=== PATIENT | female | born 1960 | race Caucasian/White ===

== ENCOUNTER → 2016-07-18 | Outpatient (CLI) | payer OTHER ==
--- NOTE | 2016-07-18 09:26 | MRI ---
Study: MRI of the Lumbar Spine. Indication: LUMBAR PAIN Technique: Multiplanar, multi sequence MRI of the lumbar spine was obtained without intravenous contrast. Comparison: Radiographs March 07, 2016. Findings: The designated L5-S1 disc space level is visualized on axial T2 image 8. Vertebral body height maintained. No marrow infiltrating lesion. Conus medullaris normal in caliber and signal terminating at the L1 level. Level by level analysis as follows: T11-T12: Moderate anterior disc space height loss with prominent Modic type 2 endplate changes. 3 mm disc bulge, otherwise unremarkable. T12-L1: Mild disc space height loss and disc desiccation with a 2 mm disc protrusion, otherwise unremarkable. L1-L2: Trace retrolisthesis with minimal disc space height loss and disc desiccation with a 1 mm disc bulge, otherwise unremarkable. L2-L3: Trace retrolisthesis with mild disc space height loss and disc desiccation. 3 mm disc bulge, otherwise unremarkable. L3-L4: Mild disc space height loss and desiccation with trace anterolisthesis. 3 mm disc bulge with mild spinal canal narrowing, mid sagittal thecal sac diameter 9 mm. Severe bilateral facet arthrosis noted with a tiny 2 mm synovial cyst emanating from the anterior margin of the left facet joint. Minimal left neural foraminal narrowing. No right neural foraminal narrowing. L4-L5: Trace degenerative anterolisthesis. Mild disc space height loss and disc desiccation. 5 mm disc uncovering with subtle posterior annular fissuring. Severe bilateral facet arthrosis with moderate ligament flavum buckling. Indentation ventral thecal sac with moderate to severe spinal canal narrowing, mid sagittal thecal sac diameter 5 mm. CSF completely effaced. Mild bilateral neural foraminal narrowing. L5-S1: Severe disc space height loss and disc desiccation with patchy Modic type 2 endplate changes. 4 mm disc osteophyte complex. Moderate bilateral facet arthrosis. Moderate left and mild right lateral recess narrowing. No spinal canal narrowing. Moderate bilateral neural foraminal narrowing with the disc closely approximating the exiting L5 nerve roots. Impression: Multilevel lumbar disc disease which changes most pronounced at L4-L5 where there is degenerative anterolisthesis, moderate to severe spinal canal narrowing and mild bilateral neural foraminal narrowing. Electronically signed by: Cristobal Irby MD 07/18/2016 09:25
== END ==
LOC: MRI 07:55
PROVIDERS: ATTEND Nurse Practitioner Family
DX: M54.17 Radiculopathy, lumbosacral region (principal); M51.86 Other intervertebral disc disorders, lumbar region; M43.16 Spondylolisthesis, lumbar region; M21.371 Foot drop, right foot

== ENCOUNTER → 2016-07-31 | Outpatient (CLI) | payer OTHER ==
--- NOTE | 2016-07-31 11:38 | RAD ---
EXAM DESCRIPTION: Lumbar spine series. CLINICAL HISTORY: Low back pain. COMPARISON: None. TECHNIQUE: Five views of the lumbar spine were obtained. FINDINGS: There is grade 1 listhesis of L4 on L5. This does not change on flexion or extension radiographs. Vertebral body height is unremarkable. There is lateral translation of L2 on L3 this is best seen on the AP radiograph. IMPRESSION: Grade 1 anterolisthesis of L4 on L5. There is no increased or decreased listhesis on flexion or extension radiographs. Electronically signed by: Felipe Armando MD 07/31/2016 11:37
== END ==
LOC: RAD 10:12
PROVIDERS: ATTEND Orthopaedic Surgery Orthopaedic Surgery of the Spine
DX: M54.5 Low back pain (principal); M43.16 Spondylolisthesis, lumbar region

== ENCOUNTER 2016-09-20 22:28 | Emergency (ER) | payer OTHER ==
[2016-09-20] MEDS ORDERED: ASPIRIN (CHEWABLE) 81 MG TAB ONE (22:40)
[2016-09-20] MEDS ORDERED: ASPIRIN (CHEWABLE) 81 MG TAB PO ONE (22:53)
--- NOTE | 2016-09-20 23:03 | ED.PDOC ---
History of Present Illness - General Chief Complaint: Chest Pain/[place] Stated Complaint: chest pain Time Seen by Provider: 09/20/16 22:39 Source: patient Exam Limitations: no limitations - History of Present Illness Initial Comments: Patient presents with 24 hours of chest pain. It is mid-sterna and radiates to her back. She had an AMI 2 years ago with stent placement. She says this pain is different. She had dyspnea yesterday that cleared up. Pain is stabbing in nature. No associated sx . No exacerbating nor alleviating factors. She was on a car trip yesterday and one week ago, both lasted >3 hours. Her sister has a hx of "blood clots". Patient has NIDDM. No other complaints. No hx of cancer or orthopedic surgeries nor fractures in the last year. Timing/Duration: 24 hours Severity: moderate Improving Factors: nothing Worsening Factors: nothing Associated Symptoms: chest pain, shortness of breath Allergies/Adverse Reactions: Allergies NO KNOWN ALLERGY Allergy (Unverified 01/26/15 16:31) Home Medications: Ambulatory Orders Glipizide 10 mg PO DAILY 01/26/15 Lisinopril 10 mg PO DAILY 01/26/15 Metoprolol Tartrate 100 mg PO DAILY 01/26/15 Review of Systems - Review of Systems Constitutional: States: no symptoms reported EENTM: States: no symptoms reported Respiratory: States: see HPI Cardiology: States: see HPI Gastrointestinal/Abdominal: States: no symptoms reported Genitourinary: States: no symptoms reported Musculoskeletal: States: no symptoms reported Skin: States: no symptoms reported Neurological: States: no symptoms reported Endocrine: States: no symptoms reported Hematologic/Lymphatic: States: no symptoms reported Past Medical History (General) - Patient Medical History Hx Stroke: No Hx Cardiac Disorders: Yes - [place] 2016, stent Hx Congestive Heart Failure: No Hx Hypertension: Yes Hx Diabetes: Yes - type 2 Hx MRSA: No Surgical History: cholecystectomy, other - Vaccination History Hx Influenza Vaccination: No Hx Pneumococcal Vaccination: Yes - Social History Hx Tobacco Use: No Hx Alcohol Use: Yes - occ - Female History Patient : No Family Medical History - Family History Mother Living Status: Hx Family Hypertension: Yes Hx Family Diabetes: Yes Physical Exam - Physical Exam General Appearance: Alert Ears, Nose, Throat: normal ENT inspection Neck: non-tender, full range of motion, supple Respiratory: lungs clear Cardiovascular/Chest: regular rate, rhythm Gastrointestinal/Abdominal: normal bowel sounds, non tender, soft Back Exam: no CVA tenderness Extremity: normal inspection, no pedal edema Skin Exam: normal color Lymphatic: no adenopathy Progress - Progress Progress: 09/21/16 01:03 EKG showed NSR with no ST changes nor T wave inversions. No LBBB. Troponin negative. D-dimer positive. CTA chest done due to patient history and sx. It was negative for PE. Patient had chills after the CTA so she was given benadryl under the suspicion of an impending contrast reaction, however, she never developed a rash nor itching. Patient given GI cocktail which reduced the pain significantly. Discharged with instructions on how to use zantac properly and mylanta. 09/21/16 01:06 Laboratory Tests 09/20/16 22:50 WBC 11.2 H RBC 4.17 L Hgb 11.8 L Hct 35.6 L MCV 85.3 MCH 28.2 MCHC 33.3 RDW 13.1 Plt Count 336 MPV 7.0 L Absolute Neuts (auto) 7.80 H Absolute Lymphs (auto) 2.10 Absolute Monos (auto) 1.00 H Absolute Eos (auto) 0.30 Absolute Basos (auto) 0.10 Neutrophils % 69.3 Lymphocytes % 18.6 L Monocytes % 9.2 H Eosinophils % 2.3 Basophils % 0.6 PT 11.9 INR 1.050 PTT (SP) 28.7 D-Dimer, Quantitative 290 H* Sodium 134 L Potassium 3.3 L Chloride 100 L Carbon Dioxide 26 Anion Gap 11.3 L BUN 23 H Creatinine 1.08 BUN/Creatinine Ratio 21.3 H Random Glucose 304 H Serum Osmolality 283.3 Calcium 9.2 Total Bilirubin 0.5 AST 17 ALT 14 Alkaline Phosphatase 78 Creatine Kinase 37 CK-MB (CK-2) 1.2 CK-MB (CK-2) % Not Reportable Troponin I < 0.02 B-Natriuretic Peptide 18.2 Serum Total Protein 7.5 Albumin 3.8 Globulin 3.7 H Albumin/Globulin Ratio 1.0 L Departure - Departure Clinical Impression: Chest pain Disposition: Discharge to Home or Self Care Condition: Good Departure Forms: ED Discharge - Pt. Copy, Patient Portal Self Enrollment Diet: low fat, low cholesterol Activity: increase activity as tolerated Home Medications: Ambulatory Orders Glipizide 10 mg PO DAILY 01/26/15 Lisinopril 10 mg PO DAILY 01/26/15 Metoprolol Tartrate 100 mg PO DAILY 01/26/15 Additional Instructions: Use Zantac every morning 30 minutes before your first meal or oral intake. Mylanta as directed on the bottle. Return to the ER for worsening of symptoms or shortness of breath. Follow up with your primary care doctor on friday.
[2016-09-21] MEDS ORDERED: diphenhydrAMINE HCL 50 MG/ML VIAL ONE (00:20)
[2016-09-21] MEDS ORDERED: diphenhydrAMINE HCL 50 MG/ML VIAL IV ONE (00:21)
--- NOTE | 2016-09-21 00:31 | CT ---
EXAM: CTA Chest CLINICAL INDICATION: 56-year-old female with cardiac pain, radiating to back, suspicion for pulmonary embolism. COMPARISON: None. EXAMINATION: CT angiography of the pulmonary arteries was performed following intravenous administration of contrast. Coronal and bilateral oblique maximum intensity projections (MIPS) were created. FINDINGS: Chest: Evaluation through the lungs reveals no focal opacity, pleural effusion or pneumothorax. There is minimal dependent basilar atelectasis and scarring. The tracheobronchial airways are patent. No significant mediastinal or axillary lymphadenopathy by CT measurement criteria. Heart size within normal limits. No pericardial effusion. Cardiac stents. Limited evaluation of the upper abdomen shows no acute intra-abdominal abnormalities. The osseous structures are within normal limits. CT angiography: Diagnostic CT angiography of the pulmonary arteries without intraluminal filling defect noted to suggest pulmonary arterial embolus. IMPRESSION: 1. Diagnostic pulmonary angiography without findings to suggest pulmonary arterial embolus. 2. The lungs are clear without focal opacity, pleural effusion or pneumothorax. 3. No specific findings are noted to suggest etiology of the patient's chest pain and shortness of breath. Electronically signed by: Concepcion Saucedo MD 09/21/2016 12:30 AM CDT
[2016-09-21] MEDS ORDERED: LIDOCAINE VIS-MYLANTA 30 ML UD PO ONE (00:32)
[2016-09-21 00:46] VITALS: BP 150/77
[2016-09-21 01:28] VITALS: O2SAT 98
== END 2016-09-21 01:28 | disposition home or self-care (01) ==
LOC: ER 22:28
DX: R07.9 Chest pain, unspecified (principal); I25.2 Old myocardial infarction; I10 Essential (primary) hypertension; E11.9 Type 2 diabetes mellitus without complications; Z98.61 Coronary angioplasty status; Z79.899 Other long term (current) drug therapy
CPT/HCPCS: 36415; 71275; 80053; 82550; 82553; 83880; 84484; 85025; 85379; 85610; 85730; 93005; J1200

== ENCOUNTER → 2016-10-17 | Outpatient (CLI) | payer MEDICAID | LOC: LAB.O 16:14 | PROVIDERS: ATTEND Nurse Practitioner Family | DX: I10 Essential (primary) hypertension (principal); E11.9 Type 2 diabetes mellitus without complications ==

== ENCOUNTER → 2016-12-12 | Outpatient (CLI) | payer OTHER, MEDICAID | END | disposition home or self-care (01) | LOC: LAB.O 13:33 | PROVIDERS: ATTEND Nurse Practitioner Family | DX: E11.9 Type 2 diabetes mellitus without complications (principal) ==

== ENCOUNTER → 2016-12-17 | Outpatient (CLI) | payer OTHER | END | disposition home or self-care (01) | LOC: LAB.O 09:49 | PROVIDERS: ATTEND Nurse Practitioner Family | DX: E03.9 Hypothyroidism, unspecified (principal) ==

== ENCOUNTER → 2017-05-01 | Outpatient (CLI) | payer OTHER ==
--- NOTE | 2017-05-02 11:30 | MRI ---
Procedure: MR HIP WITHOUT IV CONTRAST Exam Date: 05/01/2017 12:00 AM CDT Ordering Provider: MIRA ANGULO Clinical Indication: HIP PAIN Comparison: None TECHNIQUE: MRI of the right hip was performed according to routine protocol with both large and small field of view imaging. FINDINGS: Marked subchondral sclerosis and flattening of the right humeral head with complete loss of joint space and morphologic changes also noted within the superior acetabulum. Findings are compatible with end-stage right hip osteoarthritis. There is also a component of mild avascular necrosis in the superior femoral head. No fractures or subluxations. No large joint effusions yet there is marked marginal osteophytosis and capsular thickening. No abnormality is present at the greater trochanter or gluteus minimus or gluteus minimus tendons. Normal Iliopsoas and lesser trochanter. No muscle abnormality is identified. No masses. No abnormality is present at the hip adductor tendons or pubic symphysis or pubic rami. No sacral or sacroiliac abnormality. Pirformis muscles are symmetric. The proximal hamstring tendon complex insertion at the ischium is intact. No pelvis mass or free fluid. IMPRESSION: 1. End-stage right hip osteoarthritis with a component of mild avascular necrosis. Significant osteophytosis with capsular hypertrophy at no large joint effusion or loose body. Electronically signed by: Elgin Bonner MD 05/02/2017 11:28 AM CDT
== END | disposition home or self-care (01) ==
LOC: MRI 14:15
PROVIDERS: ATTEND Nurse Practitioner Family
DX: M16.11 Unilateral primary osteoarthritis, right hip (principal)

== ENCOUNTER → 2017-08-18 | Outpatient (CLI) | payer OTHER | LOC: LAB.O 09:07 | PROVIDERS: ATTEND Nurse Practitioner Family | DX: E03.9 Hypothyroidism, unspecified (principal) ==